=== PATIENT | female | born 1995 | race Two or more races ===

== ENCOUNTER 2021-12-22 01:52 | Emergency (ER) | payer SELFPAY ==
[2021-12-22 02:50] VITALS: BP 110/60
== END 2021-12-22 03:02 | disposition home or self-care (01) ==
LOC: ER 01:52
DX: S66.912A Strain of unspecified muscle, fascia and tendon at wrist and hand level, left hand, initial encounter (principal); X58.XXXA Exposure to other specified factors, initial encounter; Y93.89 Activity, other specified; Y92.89 Other specified places as the place of occurrence of the external cause; Y99.8 Other external cause status
CPT/HCPCS: 73110

== ENCOUNTER 2022-07-08 15:26 | Emergency (ER) | payer OTHER ==
[~2022-07-08] VITALS: Ht 154.9 cm; Wt 66.9 kg
[~2022-07-08 15:26] MED LIST: CEPH-322 PO; METH100I PO
[2022-07-08 15:59] VITALS: BP 105/72
[2022-07-08] MEDS ORDERED: FLUORESCEIN SOD OPTH TEST STRIP RIGHTEYE ONE (17:00)
[2022-07-08] MEDS ORDERED: TETRACAINE HCL 0.5% OPTH(EYE) SOLN 4ML RIGHTEYE ONE (17:00)
[2022-07-08] MEDS ORDERED: ERY05OO OP (17:25)
== END 2022-07-08 18:05 | disposition home or self-care (01) ==
LOC: ER 15:26
DX: S05.01XA Injury of conjunctiva and corneal abrasion without foreign body, right eye, initial encounter (principal); Z88.0 Allergy status to penicillin; Z79.899 Other long term (current) drug therapy; Z87.442 Personal history of urinary calculi; W22.8XXA Striking against or struck by other objects, initial encounter; Y93.89 Activity, other specified; Y92.89 Other specified places as the place of occurrence of the external cause; Y99.8 Other external cause status